=== PATIENT | female | born 1995 | race Two or more races ===

== ENCOUNTER 2019-05-07 16:36 | Emergency (ER) | payer SELFPAY ==
[2019-05-07] MEDS ORDERED: cefTRIAXone 1 GM Vial IM ONE (17:07)
--- NOTE | 2019-05-07 17:42 | EDM.PDOC ---
ED HPI GENERAL MEDICAL PROBLEM - General Chief Complaint: Bite:Animal, Insect Stated Complaint: BITE Time Seen by Provider: 05/07/19 16:50 - History of Present Illness INITIAL COMMENTS - FREE TEXT/NARRATIVE: HISTORY AND PHYSICAL: History of present illness: Patient is a 23-year-old female who presents with a concern of wound to her right forearm this started as a possible insect bite that she had scratch it became irritated excoriated subsequently developed a more significant cavitary type lesion she was seen by a another physician prior in an emergency department and did local wound care there's been no fever chills nausea vomiting she is currently breast-feeding Review of systems: As per history of present illness and below otherwise all systems reviewed and negative. Past medical history: As per history of present illness and as reviewed below otherwise noncontributory. Surgical history: As per history of present illness and as reviewed below otherwise noncontributory. Social history: No reported history of drug or alcohol abuse. Family history: As per history of present illness and as reviewed below otherwise noncontributory. Physical exam: HEENT: Atraumatic, normocephalic, pupils reactive, negative for conjunctival pallor or scleral icterus, mucous membranes moist, throat clear, neck supple, nontender, trachea midline. Lungs: Clear to auscultation, breath sounds equal bilaterally, chest nontender. Heart: S1S2, regular, negative for clicks, rubs, or JVD. Abdomen: Soft, nondistended, nontender. Negative for masses or hepatosplenomegaly. Negative for costovertebral tenderness. Pelvis: Stable nontender. Genitourinary: Deferred. Rectal: Deferred. Extremities: Patient has approximately a 1/2 cm excoriated area with some slight cavitation minimal surrounding erythema right forearm that actually looks better compared to picture she did show me prior there is no induration no significant discharge CMS neurovascular exams unremarkable Neuro: Awake, alert, oriented. Cranial nerves II through XII unremarkable. Cerebellum unremarkable. Motor and sensory unremarkable throughout. Exam nonfocal. Diagnostics: None Therapeutics: Rocephin 1 g IM Impression: #1 cellulitis right forearm Definitive disposition and diagnosis as appropriate pending reevaluation and review of above. Right Arm Pain Score (Numeric/FACES): 10 - Related Data Allergies Allergy/AdvReac Type Severity Reaction Status Date / Time Sulfa (Sulfonamide Allergy Rash Verified 05/07/19 16:57 Antibiotics) Home Meds: Home Meds . [No Known Home Meds] 05/07/19 [History] Past Medical History - Past Health History Medical/Surgical History: Denies Medical/Surgical History Social & Family History - Family History Family Medical History: Noncontributory - Tobacco Use Smoking Status *Q: Never Smoker - Recreational Drug Use Recreational Drug Use: No ED ROS GENERAL - Review of Systems Review Of Systems: ROS reveals no pertinent complaints other than HPI. ED EXAM, ANIMAL BITE - Physical Exam Exam: See Below (See dictation) Course - Vital Signs Last Recorded V/S: Last Vital Signs Temp 36.2 C 05/07/19 16:49 Pulse 86 05/07/19 16:49 Resp 18 05/07/19 16:49 BP 117/65 05/07/19 16:49 Pulse Ox 98 05/07/19 16:49 - Orders/Labs/Meds Meds: Medications Discontinued Medications Generic Name Dose Route Start Last Admin Trade Name Lexie PRN Reason Stop Dose Admin Ceftriaxone Sodium 1 gm 05/07/19 17:07 05/07/19 17:21 Rocephin IM 05/07/19 17:08 1 gm ONETIME ONE Administration Lidocaine HCl 5 ml 05/07/19 17:16 05/07/19 17:22 Xylocaine-Mpf 1% INJECT 05/07/19 17:17 5 ml ONETIME ONE Administration Departure - Departure Time of Disposition: 17:42 Disposition: Home, Self-Care 01 Condition: Good Clinical Impression: Cellulitis - Discharge Information Referrals: PCP,None [Primary Care Provider] - Additional Instructions: The following information is given to patients seen in the emergency department who are being discharged to home. This information is to outline your options for follow-up care. We provide all patients seen in our emergency department with a follow-up referral. The need for follow-up, as well as the timing and circumstances, are variable depending upon the specifics of your emergency department visit. If you don't have a primary care physician on staff, we will provide you with a referral. We always advise you to contact your personal physician following an emergency department visit to inform them of the circumstance of the visit and for follow-up with them and/or the need for any referrals to a consulting specialist. The emergency department will also refer you to a specialist when appropriate. This referral assures that you have the opportunity for followup care with a specialist. All of these measure are taken in an effort to provide you with optimal care, which includes your followup. Under all circumstances we always encourage you to contact your private physician who remains a resource for coordinating your care. When calling for followup care, please make the office aware that this follow-up is from your recent emergency room visit. If for any reason you are refused follow-up, please contact the [facility] emergency department at and asked to speak to the emergency department charge nurse. Clindamycin as prescribed follow-up 24 hours for reevaluation sling as directed dressing as directed and return as needed as discussed
== END 2019-05-07 17:53 | disposition home or self-care (01) ==
LOC: MW.ED 16:36
DX: L03.113 Cellulitis of right upper limb (principal); Z88.2 Allergy status to sulfonamides
CPT/HCPCS: 96372; 99283; J0696; J2001